=== PATIENT | female | born 1955 | race Caucasian/White ===

== ENCOUNTER 2019-08-07 21:14 | Emergency (ER) | payer BC ==
[2019-08-07 21:30] VITALS: BP 160/59
--- NOTE | 2019-08-07 21:35 | UC ---
Cardiac HPI - HPI Summary HPI Summary: The patient is a 64-year-old female with a 2 day history of severe tremors and shakes, anxiety, and palpitations. Intermittently she gets sharp pains in her left chest that lasts for 1-2 seconds. She states that she has been unable to remain still. She denies any shortness of breath. She has felt weak and dizzy. She denies any weight loss. She has no personal history of thyroid disease. She has had no fever or chills. She states she does feel flushed. She feels her heart beating in her head. - History of Current Complaint Chief Complaint: UCGeneralIllness Stated Complaint: SHAKY, RAPID HEART RATE Time Seen by Provider: 08/07/19 21:28 Hx Obtained From: Patient Hx Last Menstrual Period: post Onset/Duration: Gradual Onset, Lasting Days Timing: Constant Initial Severity: Mild Current Severity: Moderate Pain Intensity: 2 Character: Slow, Pounding Aggravating Factor(s): Medications - has been taking cold preparations Alleviating Factor(s): Nothing Associated Signs & Symptoms: Positive: Chest Pain, Anxiety, Recent Stress, Weakness, Dizziness, Palpitations. Negative: Vision Changes, Headaches, Numbness, Tingling, SOB, Swelling, Syncope, Fever, Diaphoresis, Nausea/Vomiting , Cough, Hemoptysis, Back Pain, Abdominal Pain, Calf Pain/Swelling - Allergy/Home Medications Allergies/Adverse Reactions: Allergies Allergy/AdvReac Type Severity Reaction Status Date / Time No Known Allergies Allergy Verified 08/07/19 21:26 PMH/Surg Hx/FS Hx/Imm Hx Previously Healthy: Yes - Surgical History Surgical History: Yes Surgery Procedure, Year, and Place: wisdom teeth - Family History Known Family History: Positive: Unknown - ADOPTED - Social History Alcohol Use: None Substance Use Type: None Smoking Status (MU): Current Every Day Smoker Type: Cigarettes Amount Used/How Often: 4 CIG/DAY Review of Systems All Other Systems Reviewed And Are Negative: Yes Constitutional: Positive: Negative Skin: Positive: Negative Eyes: Positive: Negative ENT: Positive: Negative Respiratory: Positive: Negative Cardiovascular: Positive: Palpitations Gastrointestinal: Positive: Negative Genitourinary: Positive: Negative Motor: Positive: Negative Neurovascular: Positive: Negative Musculoskeletal: Positive: Negative Neurological/Mental Status: Positive: Negative Psychological: Positive: Anxious Physical Exam Triage Information Reviewed: Yes Appearance: Well-Appearing, No Pain Distress, Well-Nourished Vital Signs: Initial Vital Signs Temp 99.3 F 08/07/19 21:18 Pulse 103 08/07/19 21:18 Resp 17 08/07/19 21:18 BP 187/78 08/07/19 21:18 Pulse Ox 97 08/07/19 21:18 Vital Signs Reviewed: Yes Eyes: Positive: Conjunctiva Clear ENT: Positive: Normal ENT inspection. Negative: Pharyngeal erythema, Nasal congestion, Nasal drainage Dental Exam: Normal Neck: Positive: Supple, Nontender, No Lymphadenopathy Respiratory: Positive: Lungs clear, Normal breath sounds, No respiratory distress, No accessory muscle use Cardiovascular: Positive: RRR, No Murmur Musculoskeletal: Positive: ROM Intact, No Edema Neurological: Positive: Alert Psychological Exam: Normal Skin Exam: Normal - Clinical Impression Provider Diagnosis: Palpitations, Anxiety Discharge ED - Sign-Out/Discharge Documenting (check all that apply): Patient Departure All imaging exams completed and their final reports reviewed: No Studies - Discharge Plan Condition: Stable Disposition: HOME-RECOMMEND TO ED Referrals: Rachel Escamilla MD [Primary Care Provider] - Additional Instructions: I suggest you go to the ER for further evaluation of your symptoms - Billing Disposition and Condition Condition: STABLE Disposition: Home-Recommend to ED
== END 2019-08-07 22:00 | disposition home health service (06) ==
LOC: UCEAST 21:14
DX: R00.2 Palpitations (principal); F41.9 Anxiety disorder, unspecified; F17.210 Nicotine dependence, cigarettes, uncomplicated
CPT/HCPCS: 93005; 99202; G0463

== ENCOUNTER 2019-08-07 22:14 | Emergency (ER) | payer BC ==
[2019-08-07 22:55] LABS: ABS Lymphocytes 1.7 10^3/ul (1.0-4.8); ABS Monocytes 0.6 10^3/ul (0-0.8); ABS Neutrophils 7.2 10^3/ul (1.5-7.7); Eosinophil % 0.3 %; Hematocrit 41 % (35-47); Hemoglobin 13.9 g/dL (12.0-16.0); Lymphocyte % 17.8 %; Mean Corpuscular HGB Conc 34 g/dL (31-36); Mean Corpuscular Hemoglobin 31 pg (27-31); Mean Corpuscular Volume 90 fL (80-97); Mean Platelet Volume 6.8 fL (7.4-10.4); Platelet Count 249 10^3/uL (150-450); Red Blood Count 4.56 10^6 /uL (3.70-4.87); Red Cell Distribution Width 14 % (10-15); White Blood Count 9.6 10^3/uL (3.5-10.8)
[2019-08-07 23:14] LABS: Albumin 4.3 g/dL (3.2-5.2); Albumin/Globulin Ratio 1.5 (1-3); BUN/Creatinine Ratio 17.1 (8-20); Calcium 9.6 mg/dL (8.6-10.3); EGFR African American 102.6 (>60); EGFR Non-African American 84.8 (>60); Globulin 2.9 g/dL (2-4); Magnesium 2.2 mg/dL (1.9-2.7); Potassium 3.6 mmol/L (3.5-5.0); Total Bilirubin 0.3 mg/dL (0.2-1.0); Total Protein 7.2 g/dL (6.4-8.9)
[2019-08-07 23:29] LABS: TSH (Thyroid Stimulating Horm) 1.28 mcIU/mL (0.34-5.60)
--- NOTE | 2019-08-07 23:45 | ED ---
Palpitations / Dysrhythmia - HPI Summary HPI Summary: 64 year old female presets with palpitations today. States that at 7:00pm she developed some sharp chest pain the center chest that lasted a couple seconds which resolved. At 8:00pm she developed palpitations that lasted an hour while she was sitting on the couch. She states that she felt anxious and shaky all over. She's been having issues with her anxiety the past couple days. States she's been getting over cold and has been taking cough medication. She denies any chest pressures breath currently. She denies any sob or dizziness. She states she feels a little anxious. Has no medical conditions. no recent travel. no pain or swelling in her calf muscles. - History of Current Complaint Chief Complaint: EDDysrhythmPalp Time Seen by Provider: 08/07/19 22:38 - Allergy/Home Medications Allergies/Adverse Reactions: Allergies Allergy/AdvReac Type Severity Reaction Status Date / Time No Known Allergies Allergy Verified 08/07/19 21:26 PMH/Surg Hx/FS Hx/Imm Hx Endocrine/Hematology History: Denies: Hx Diabetes, Hx Thyroid Disease Cardiovascular History: Denies: Hx Hypertension Respiratory History: Denies: Hx Asthma, Hx Chronic Obstructive Pulmonary Disease (COPD) GI History: Denies: Hx Ulcer - Surgical History Surgery Procedure, Year, and Place: wisdom teeth Infectious Disease History: No Infectious Disease History: Denies: Hx Clostridium Difficile, Hx Hepatitis, Hx Human Immunodeficiency Virus (HIV), Hx of Known/Suspected MRSA, Hx Shingles, Hx Tuberculosis, Traveled Outside the [place] in Last 30 Days - Family History Known Family History: Positive: Unknown - ADOPTED - Social History Alcohol Use: Occasionally Substance Use Type: Reports: Marijuana Substance Use Comment - Amount & Last Used: daily Smoking Status (MU): Current Every Day Smoker Type: Cigarettes Amount Used/How Often: 4 CIG/DAY Review of Systems Negative: Fever Positive: Palpitations, Chest Pain Negative: Shortness Of Breath All Other Systems Reviewed And Are Negative: Yes Physical Exam Triage Information Reviewed: Yes Vital Signs On Initial Exam: Initial Vitals Temp Pulse Resp BP Pulse Ox 98.4 F 86 16 154/97 97 08/07/19 22:15 08/07/19 22:15 08/07/19 22:15 08/07/19 22:15 08/07/19 22:15 Vital Signs Reviewed: Yes Appearance: Positive: Well-Appearing Skin: Positive: Warm, Dry Head/Face: Positive: Normal Head/Face Inspection Eyes: Positive: Normal, EOMI, SAJI, Conjunctiva Clear ENT: Positive: Normal ENT inspection, Pharynx normal, TMs normal Respiratory/Lung Sounds: Positive: Clear to Auscultation, Breath Sounds Present Cardiovascular: Positive: Normal, RRR Abdomen Description: Positive: Nontender, Soft Bowel Sounds: Positive: Present Musculoskeletal: Positive: Normal Neurological: Positive: Normal Psychiatric: Positive: Normal Procedures - Sedation Patient Received Moderate/Deep Sedation with Procedure: No Diagnostics - Vital Signs Vital Signs Temp Pulse Resp BP Pulse Ox 08/07/19 22:15 98.4 F 86 16 154/97 97 - Laboratory Lab Results: Lab Results 08/07/19 08/07/19 08/07/19 Range/Units 22:45 22:45 22:45 WBC 9.6 (3.5-10.8) 10^3/uL RBC 4.56 (3.70-4.87) 10^6 /uL Hgb 13.9 (12.0-16.0) g/dL Hct 41 (35-47) % MCV 90 (80-97) fL MCH 31 (27-31) pg MCHC 34 (31-36) g/dL RDW 14 (10-15) % Plt Count 249 (150-450) 10^3/uL MPV 6.8 L (7.4-10.4) fL Neut % (Auto) 75.7 % Lymph % (Auto) 17.8 % [place] % (Auto) 6.0 % Eos % (Auto) 0.3 % Baso % (Auto) 0.2 % Absolute Neuts (auto) 7.2 (1.5-7.7) 10^3/ul Absolute Lymphs (auto) 1.7 (1.0-4.8) 10^3/ul Absolute Monos (auto) 0.6 (0-0.8) 10^3/ul Absolute Eos (auto) 0.0 (0-0.6) 10^3/ul Absolute Basos (auto) 0.0 (0-0.2) 10^3/ul Absolute Nucleated RBC 0.0 10^3/ul Nucleated RBC % 0.0 Sodium 139 (135-145) mmol/L Potassium 3.6 (3.5-5.0) mmol/L Chloride 107 (101-111) mmol/L Carbon Dioxide 26 (22-32) mmol/L Anion Gap 6 (2-11) mmol/L BUN 12 (6-24) mg/dL Creatinine 0.70 (0.51-0.95) mg/dL Est GFR ( Amer) 102.6 (>60) Est GFR (Non-Af Amer) 84.8 (>60) BUN/Creatinine Ratio 17.1 (8-20) Glucose 122 H (70-100) mg/dL Lactic Acid 1.1 (0.5-2.0) mmol/L Calcium 9.6 (8.6-10.3) mg/dL Magnesium 2.2 (1.9-2.7) mg/dL Total Bilirubin 0.30 (0.2-1.0) mg/dL AST 17 (13-39) U/L ALT 15 (7-52) U/L Alkaline Phosphatase 52 (34-104) U/L Troponin I 0.00 (<0.03) ng/mL Total Protein 7.2 (6.4-8.9) g/dL Albumin 4.3 (3.2-5.2) g/dL Globulin 2.9 (2-4) g/dL Albumin/Globulin Ratio 1.5 (1-3) TSH 1.28 (0.34-5.60) mcIU/mL Result Diagrams: 08/07/19 22:45 08/07/19 22:45 Lab Statement: Any lab studies that have been ordered have been reviewed, and results considered in the medical decision making process. - EKG No standard instances Cardiac Rate: NL EKG Rhythm: Sinus Rhythm EKG Comparison: No Significant Change Summary of EKG Findings: sinus rhythm Course/Dx - Course Course Of Treatment: 64 year old female presets with palpitations today. States that at 7:00pm she developed some sharp chest pain the center chest that lasted a couple seconds which resolved. At 8:00pm she developed palpitations that lasted an hour while she was sitting on the couch. She states that she felt anxious and shaky all over. She's been having issues with her anxiety the past couple days. States she's been getting over cold and has been taking cough medication. She denies any chest pressures breath currently. She denies any sob or dizziness. She states she feels a little anxious. Has no medical conditions. no recent travel. no pain or swelling in her calf muscles. On exam heart regular rate and rhythm. EKG shows sinus rhythm. lab work wnl. troponin zero and has not had chest pain in almost 6 hours so will not get a second troponin. discussed symptoms likely due to anxiety. Told to follow up primary. Told if develop chest pain or any worsening symptoms to return. Patient understands agrees with the plan. - Diagnoses Differential Diagnosis/HQI/PQRI: Positive: Hypokalemia, Panic Disorder, Other - thyroid disorder Provider Diagnoses: Palpitations Discharge ED - Sign-Out/Discharge Documenting (check all that apply): Patient Departure - Discharge Plan Condition: Good Disposition: HOME Patient Education Materials: Heart Palpitations (ED) Referrals: Rachel Escamilla MD [Primary Care Provider] - Additional Instructions: follow up with primary within 5 days Return to ED if develop any new or worsening symptoms - Billing Disposition and Condition Condition: GOOD Disposition: Home
[2019-08-08 00:41] VITALS: BP 137/67
== END 2019-08-08 00:41 | disposition home or self-care (01) ==
LOC: ED 22:14
DX: R00.2 Palpitations (principal); F41.9 Anxiety disorder, unspecified; F17.210 Nicotine dependence, cigarettes, uncomplicated
CPT/HCPCS: 36415; 80053; 83605; 83735; 84443; 84484; 85025; 93005; 99282